=== PATIENT | male | born 1950 | race Caucasian/White ===

== ENCOUNTER 2017-01-31 11:01 | Inpatient (IN) | payer OTHER ==
[~2017-01-31] VITALS: Ht 170.2 cm; Wt 73.2 kg
[2017-01-31] MEDS ORDERED: AMLO-147 PO (14:33)
[2017-01-31] MEDS ORDERED: PANTOPRAZOLE 40 MG INJ IV STA (14:35)
[2017-01-31] MEDS ORDERED: ATEN100T PO (14:42)
[2017-01-31] MEDS ORDERED: ATOR10TA65 PO (14:42)
[2017-01-31] MEDS ORDERED: ERGO500037 PO (14:43)
[2017-01-31] MEDS ORDERED: LOSA50TA6 PO (14:43)
[2017-01-31] MEDS ORDERED: OMEP40CA6 PO (14:44)
[2017-01-31] MEDS ORDERED: METF1000 PO (14:44)
[2017-01-31 14:46] LABS: ADD SCAN DIFF NO
[2017-01-31 14:47] LABS: BASOPHILS % 0.2 % (0.0-2.0); EOSINOPHILS % 0.2 % (0.0-7.0); HEMATOCRIT 15.8 % (42.0-52.0); LYMPHOCYTES # 2.7 10^3/ul (0.8-2.9); LYMPHOCYTES % 30.1 % (15.0-51.0); MEAN CORPUSCULAR HEMOGLOBIN 32.7 pg (29.0-33.0); MEAN CORPUSCULAR HGB CONC 32.9 g/dl (32.0-37.0); MEAN CORPUSCULAR VOLUME 99.4 fl (82.0-101.0); MEAN PLATELET VOLUME 9.4 fl (7.4-10.4); MONOCYTE # 0.6 10^3/ul (0.3-0.9); MONOCYTES % 6.1 % (0.0-11.0); NEUTROPHIL # 5.6 10^3/ul (1.6-7.5); NEUTROPHILS % 62.4 % (39.0-77.0); PLATELET COUNT 255 10^3/UL (140-415); RED BLOOD COUNT 1.59 10^6/ul (4.70-6.10); RED CELL DISTRIBUTION WIDTH 18.3 % (11.5-14.5)
--- NOTE | 2017-01-31 14:50 | ERA ---
ER Documentation Chief Complaint Date/Time DATE: 01/31/17 TIME: 14:47 Chief Complaint SENT FOR POSSIBLE BLOOD TRANS HPI Patient is a 66-year-old man with history of diabetes, hypertension, hypercholesterolemia who presents with shortness of breath and lightheadedness for 3 days. Patient reports one episode of hematemesis 3 days ago, denies black stools. Patient saw his PMD today and was found to have a hemoglobin of 5.4, so he was sent to the ER for blood transfusion and further workup of GI bleed. Patient denies alcohol use, denies history of GI bleed, denies recent use of NSAIDs. No history of cirrhosis or liver disease. Not on blood thinners. ROS All systems reviewed and are negative except as per history of present illness. Medications Home Meds Reported Medications Omeprazole* (Omeprazole*) 40 Mg Capsule.dr, 40 MG PO DAILY, #30 CAP 01/31/17 Metformin Hcl* (Metformin Hcl*) 1,000 Mg Tablet, 1000 MG PO WITH BREAKFAST DINNE , #30 TAB 01/31/17 Losartan Potassium* (Losartan Potassium*) 50 Mg Tablet, 50 MG PO DAILY, TAB 01/31/17 Ergocalciferol (Vitamin D2) (VITAMIN D2) 50,000 Unit Capsule, 35698 UNIT PO every 7 days, CAP 01/31/17 Atorvastatin Calcium (Atorvastatin Calcium) 10 Mg Tablet, 10 MG PO QHS, #30 TAB 01/31/17 Atenolol* (Atenolol*) 100 Mg Tablet, 100 MG PO DAILY, #30 TAB 01/31/17 Amlodipine Besylate* (Amlodipine Besylate*) 10 Mg Tablet, 10 MG PO DAILY, #30 TAB 01/31/17 Allergies Allergies: Coded Allergies: No Known Allergy (Unverified , 01/31/17) PMhx/Soc Past medical history: Diabetes mellitus, hypertension, hyperlipidemia Past surgical history: Denies Social history: Denies tobacco or alcohol Medical and Surgical Hx: pt denies Surgical Hx History of Surgery: No Anesthesia Reaction: No Hx Neurological Disorder: No Hx Respiratory Disorders: No Hx Cardiac Disorders: Yes (hypertension; hypercholesterolemia) Hx Miscellaneous Medical Probl: No (dm) Hx Alcohol Use: No Hx Substance Use: No Hx Tobacco Use: No Smoking Status: Never smoker FmHx Family History: No coronary disease, No diabetes Physical Exam Vitals Vital Signs Date Time Temp Pulse Resp B/P Pulse Ox O2 Delivery O2 Flow Rate FiO2 01/31/17 16:20 79 18 133/70 98 Room Air 01/31/17 14:41 Nasal Cannula 2 01/31/17 11:05 98.0 101 18 134/71 99 Physical Exam Const: Alert, oriented, no acute distress Head: Atraumatic Eyes: Pale conjunctiva ENT: Normal External Ears, Nose and Mouth. Neck: Full range of motion. No meningismus. Resp: Clear to auscultation bilaterally Cardio: Regular rate and rhythm, no murmurs Abd: Soft, non tender, non distended. Normal bowel sounds Rectal: Slightly dark stool, no gross blood Skin: No petechiae or rashes Back: No midline or flank tenderness Ext: No cyanosis, or edema Neur: Awake and alert Psych: Normal Mood and Affect Result Diagram: 01/31/17 1440 01/31/17 1440 Results 24 hrs Laboratory Tests Test 01/31/17 14:40 Activated Partial Thromboplast Time 26.4Sec Alanine Aminotransferase (ALT/SGPT) 33IU/L Albumin 3.4g/dl Albumin/Globulin Ratio 1.36 Alkaline Phosphatase 57IU/L Anion Gap 15 Aspartate Amino Transf (AST/SGOT) 30IU/L Basophils # 0.010^3/ul Basophils % 0.2% Blood Urea Nitrogen 15mg/dl Calcium Level 8.7mg/dl Carbon Dioxide Level 27mmol/L Chloride Level 104mmol/L Creatinine 0.79mg/dl Differential Comment AUTO w/SCAN Direct Bilirubin 0.00mg/dl Eosinophils # 0.010^3/ul Eosinophils % 0.2% Globulin 2.50g/dl Glucose Level 131mg/dl Hematocrit 15.8% Hemoglobin 5.2g/dl INR International Normalized Ratio 1.02 Indirect Bilirubin 0.1mg/dl Lymphocytes # 2.710^3/ul Lymphocytes % 30.1% Mean Corpuscular Hemoglobin 32.7pg Mean Corpuscular Hemoglobin Concent 32.9g/dl Mean Corpuscular Volume 99.4fl Mean Platelet Volume 9.4fl Monocytes # 0.610^3/ul Monocytes % 6.1% Neutrophils # 5.610^3/ul Neutrophils % 62.4% Nucleated Red Blood Cells # 0.010^3/ul Nucleated Red Blood Cells % 0.0/100WBC Platelet Count 81623^3/UL Potassium Level 4.5mmol/L Prothrombin Time 13.4Sec Prothrombin Time Ratio 1.0 Red Blood Count 1.5910^6/ul Red Cell Distribution Width 18.3% Sodium Level 141mmol/L Stool Occult Blood POSITIVE Total Bilirubin 0.1mg/dl Total Protein 5.9g/dl Troponin I 0.028ng/ml White Blood Count 9.010^3/ul Current Medications Medications (Trade) Dose Ordered Sig/Marcos Route PRN Reason Start Time Stop Time Status Last Admin Dose Admin Pantoprazole (Protonix Iv) 40 mg ONCE STAT IV 01/31/17 14:35 01/31/17 14:38 DC 01/31/17 14:43 Ondansetron HCl (Zofran Inj) 4 mg ER BRIDGE PRN IV NAUSEA AND/OR VOMITING 01/31/17 16:00 02/01/17 15:59 Acetaminophen (Tylenol Tab) 650 mg ER BRIDGE PRN PO MILD PAIN/FEVER 01/31/17 16:00 02/01/17 15:59 Procedures/MDM EKG: Time 1443, rate 83, normal sinus rhythm, normal axis and intervals, no ischemic ST-T wave changes, no ectopy MDM: Patient with episode of hematemesis 3 days ago, now has dark stool on exam , guaiac positive. Patient has normal blood pressure and pulse, no signs of coronary ischemia. No history of cirrhosis or preop prior GI bleed. Normal coags and platelets. Given Protonix IV, and will transfuse 2 units packed red blood cells and admitted for further GI workup. Discussed with Dr. Matthews, who will admit patient. Departure Diagnosis: Primary Impression: Upper GI bleed Additional Impression: Anemia Condition: JULIETA Cochran Jan 31, 2017 14:50
[2017-01-31 14:58] LABS: INR 1.02; PROTIME 13.4 Sec (12.2-14.2)
[2017-01-31 14:59] LABS: PARTIAL THROMBOPLASTIN TIME 26.4 Sec (25.0-35.0)
[2017-01-31 15:00] LABS: ALBUMIN 3.4 g/dl (3.3-4.9); POTASSIUM 4.5 mmol/L (3.5-5.1)
[2017-01-31 15:02] LABS: BILIRUBIN,INDIRECT 0.1 mg/dl (0-1.1); BILIRUBIN,TOTAL 0.1 mg/dl (0.2-1.3); CREATININE 0.79 mg/dl (0.61-1.24)
[2017-01-31 15:03] LABS: ALBUMIN/GLOBULIN RATIO 1.36; CALCIUM 8.7 mg/dl (8.4-10.2); TOTAL PROTEIN 5.9 g/dl (6.1-8.1)
[2017-01-31 15:13] LABS: TROPONIN-I 0.028 ng/ml (0.00-0.12)
[2017-01-31 15:17] LABS: HEMOGLOBIN 5.2 g/dl (14.0-18.0)
[2017-01-31] MEDS ORDERED: ACETAMINOPHEN 325 MG TAB PO PRN ×2 (16:00→19:00)
[2017-01-31] MEDS ORDERED: ONDANSETRON 4 MG INJ IV PRN ×2 (16:00→19:00)
[2017-01-31] MEDS ORDERED: FUROSEMIDE 20 MG INJ IV ONE (19:00)
[2017-01-31 20:30] VITALS: TEMP 98.3
--- NOTE | 2017-01-31 21:04 | HP ---
DATE OF ADMISSION: 01/31/2017 REASON FOR ADMISSION: Dizziness and presyncopal symptoms. HISTORY OF PRESENT ILLNESS: This is a pleasant 66-year-old gentleman, history of hypertension, hype rlipidemia, type 2 diabetes who has been feeling lightheaded for the past 3 days and has been having black, tarry stools and 1 episode of dark brown coffee-ground emesis 3 days ago. Since that time, he has remained generally weak and fatigued. Denies any recent travel history. No history of alcoh ol abuse. He takes baby aspirin for cardioprotective reasons, otherwise no significant blood thinne rs. No history of liver disease. No prior history of gastric or duodenal disorders. MEDICATIONS AT HOME: Include 1. Atenolol. 2. Atorvastatin. 3. Losartan. 4. Metformin. 5. Amlodipine. ALLERGIES: HE HAS NO KNOWN ALLERGIES. SOCIAL HISTORY: He is a nonsmoker. No alcohol, no history of drug use. FAMILY HISTORY: Noncontributory. SYSTEMS REVIEW: A 12-point review of systems negative other than that mentioned above. PHYSICAL EXAMINATION: GENERAL: Elderly-appearing gentleman, appears comfortable at rest. No acute distress. VITAL SIGNS: Temperature 98, pulse 76, blood pressure 120/72, O2 saturation 96% on room air. NECK: Supple. No JVD or lymphadenopathy. CARDIAC: S1, S2. No added sounds or murmurs. CHEST: Diminished air entry bilaterally. ABDOMEN: Soft, nontender. No guarding or rebound. EXTREMITIES: No cyanosis, clubbing or edema. NEUROLOGIC: Grossly intact. No focal deficits. LABORATORY DATA: White count was 9.0, hemoglobin 5.2, platelets of 255. BUN 15, creatinine 0.79. INR 1.02. Stool occult blood was positive. IMPRESSION AND PLAN: Significant anemia with presyncopal symptoms likely secondary to profoundly lo w hemoglobin, probable gastrointestinal bleed given history of melena. Differential does include ar teriovenous malformations, gastric or peptic ulcer disease and/or malignancy. Differential also inc ludes diverticular disease. The patient will require: 1. Remain n.p.o. 2. IV fluids. 3. Transfusion of 4 units total packed red blood cells. 4. Continue proton pump inhibitor. 5. GI consult for likely colonoscopy and endoscopy. Dictated By: DARIUSZ HODGE/JOSH Conf#: [id number] [facility]#: [id number]
[2017-01-31 21:35] VITALS: BP 143/72; PULSE 74; RESP 20
[2017-01-31 21:49] VITALS: Ht 170.2 cm; Wt 73.2 kg
[2017-01-31] MEDS ORDERED: GLUCAGON 1 MG INJ IM PRN (23:00)
[2017-01-31] MEDS ORDERED: GLUCOSE GEL 15 GRAM TUBE BUCCAL PRN (23:00)
[2017-01-31] MEDS ORDERED: GLUCOSE GEL 15 GRAM TUBE PO PRN ×2 (23:00)
[2017-01-31] MEDS ORDERED: DEXTROSE 50% 50 ML SYRINGE IV PRN ×2 (23:00)
[2017-02-01] VITALS (16 sets, daily range): BP systolic 98–158; BP diastolic 64–73; PULSE 55–85; RESP 13–20
[2017-02-01] MEDS: ACCUCHECK XX SCH (02:00)
[2017-02-01 03:44] LABS: ADD SCAN DIFF NO
[2017-02-01 03:59] LABS: BASOPHIL # 0.1 10^3/ul (0.0-0.1); BASOPHILS % 0.5 % (0.0-2.0); EOSINOPHILS # 0.1 10^3/ul (0.0-0.5); EOSINOPHILS % 1.1 % (0.0-7.0); HEMATOCRIT 23.8 % (42.0-52.0); LYMPHOCYTES # 2.8 10^3/ul (0.8-2.9); LYMPHOCYTES % 29.4 % (15.0-51.0); MEAN CORPUSCULAR HEMOGLOBIN 31.1 pg (29.0-33.0); MEAN CORPUSCULAR HGB CONC 33.6 g/dl (32.0-37.0); MEAN CORPUSCULAR VOLUME 92.6 fl (82.0-101.0); MEAN PLATELET VOLUME 9.5 fl (7.4-10.4); MONOCYTE # 0.7 10^3/ul (0.3-0.9); MONOCYTES % 7.1 % (0.0-11.0); NEUTROPHIL # 5.8 10^3/ul (1.6-7.5); NEUTROPHILS % 61.3 % (39.0-77.0); PLATELET COUNT 233 10^3/UL (140-415); RED BLOOD COUNT 2.57 10^6/ul (4.70-6.10); RED CELL DISTRIBUTION WIDTH 18.1 % (11.5-14.5); WHITE BLOOD COUNT 9.5 10^3/ul (4.8-10.8)
[2017-02-01 04:00] LABS: POTASSIUM 3.9 mmol/L (3.5-5.1)
[2017-02-01 04:03] LABS: CREATININE 0.88 mg/dl (0.61-1.24)
[2017-02-01 04:04] LABS: CALCIUM 8.4 mg/dl (8.4-10.2); PHOSPHORUS 3.9 mg/dl (2.5-4.9)
[2017-02-01] MEDS ORDERED: PANTOPRAZOLE (EC) 40 MG TAB PO SCH (06:00)
[2017-02-01] MEDS ORDERED: PANTOPRAZOLE 40 MG INJ IV SCH (06:00)
[2017-02-01] MEDS: INSULIN ASPART [NOVOLOG] 3 ML PEN SC SCH ×3 (08:00→21:00)
[2017-02-01] MEDS: SOD CHLORIDE 0.9% 1,000 ML IV SCH ×3 (08:20→21:40)
[2017-02-01] MEDS ORDERED: ERGOCALCIFEROL 50,000 UNIT CAP PO SCH (09:00)
[2017-02-01] MEDS: ATENOLOL 100 MG TAB PO SCH (09:14)
[2017-02-01] MEDS: LOSARTAN 50 MG TAB PO SCH (09:14)
[2017-02-01] MEDS: metFORMIN 500 MG TAB PO SCH ×2 (09:14→21:00)
[2017-02-01] MEDS: AMLODIPINE 10 MG TAB PO SCH (09:15)
[2017-02-01 11:33] LABS: HEMATOCRIT 27.5 % (42.0-52.0); HEMOGLOBIN 9.3 g/dl (14.0-18.0)
--- NOTE | 2017-02-01 13:47 | PN ---
DATE: 02/01/2017 TIME OF EVALUATION: 12:30 p.m. SUBJECTIVE DATA: Denies any hematemesis. Denies any other complaints. OBJECTIVE DATA: VITAL SIGNS: Temperature 98.3, pulse rate 54, respiratory rate 20, blood pressure 111/70, oxygen saturation 98% on room air. GENERAL: This is a well-built, well-nourished male patient, sitting in bed, in no apparent distress. HEENT: Head normocephalic and atraumatic. Eyes: Anicteric sclerae. Conjunctivae clear. ENT: Nasal septum is midline. Oral mucosa is dry. NECK: Supple. No JVD. RESPIRATORY: Bilaterally clear to auscultation. No adventitious breath sounds heard. No use of accessory muscles of respiration. CARDIAC: Regular rate and rhythm. No murmurs heard. ABDOMEN: Soft, nontender, and nondistended. Bowel sounds positive in all 4 quadrants. GENITOURINARY: Deferred. EXTREMITIES: No cyanosis, no clubbing, no edema. Peripheral pulses palpable. NEUROLOGIC: The patient is awake, alert, and oriented. Cranial nerves are grossly intact. LABORATORY AND DIAGNOSTIC DATA: WBC 9.5, hemoglobin 8.0, hematocrit 23.8, platelet count 233. Sodium 141, potassium 3.9, chloride 100, carbon dioxide 28 , anion gap 13, BUN 12, creatinine 0.88, glucose 120, calcium 8.4, phosphorus 3.9, magnesium 2.0. ASSESSMENT AND PLAN: 1. Normocytic normochromic anemia secondary to acute blood loss. Status post PRBC transfusion. The patient being followed by gastroenterology. Continue Protonix. The patient is scheduled for esophagogastroduodenoscopy. 2. Essential hypertension. Continue antihypertensives. Blood pressure well controlled. 3. Type 2 diabetes mellitus. Continue sliding scale insulin along with metformin. Blood sugars well controlled. 4. Dyslipidemia. Continue statin. Fasting lipid panel will be obtained. 5. Fluid, electrolytes, and nutrition. Currently n.p.o. for EGD. 6. Deep venous thrombosis prophylaxis with bilateral sequential compression devices. 7. Gastrointestinal prophylaxis. Proton pump inhibitors. PLAN: Await esophagogastroduodenoscopy. Monitor hemoglobin and hematocrit closely. Case discussed with Dr. Solo. LO SOLO MD, AM/JOSH Conf#: [id number] [facility]#: [id number] MTDD
--- NOTE | 2017-02-01 17:54 | CONS ---
Date/Time of Note Date/Time of Note DATE: 02/01/17 TIME: 17:54 Consultation Date/Type/Reason Admit Date/Time Jan 31, 2017 at 21:25 Date of Consultation: Feb 01, 2017 Social History Smoking Status: Never smoker Exam/Review of Systems Vital Signs Vitals Vital Signs Date Time Temp Pulse Resp B/P Pulse Ox O2 Delivery O2 Flow Rate FiO2 02/01/17 16:33 56 02/01/17 16:28 97.7 20 98/64 98 02/01/17 04:21 Room Air 01/31/17 14:41 2 Intake and Output 01/31/17 01/31/17 02/01/17 15:00 23:00 07:00 Intake Total 650 ml 750 ml Output Total 325 ml 900 ml Balance 325 ml -150 ml Results Result Diagram: 02/01/17 1105 02/01/17 0325 Results 24 hrs Laboratory Tests Test 01/31/17 23:21 02/01/17 03:25 02/01/17 08:09 02/01/17 11:05 Bedside Glucose 132 132 Anion Gap 13 Basophils # 0.1 Basophils % 0.5 Blood Urea Nitrogen 12 Calcium Level 8.4 Carbon Dioxide Level 28 Chloride Level 104 Creatinine 0.88 Eosinophils # 0.1 Eosinophils % 1.1 Glucose Level 120 Hematocrit 23.8 #L 27.5 L Hemoglobin 8.0 #L 9.3 L Lymphocytes # 2.8 Lymphocytes % 29.4 Magnesium Level 2.0 Mean Corpuscular Hemoglobin 31.1 Mean Corpuscular Hemoglobin Concent 33.6 Mean Corpuscular Volume 92.6 Mean Platelet Volume 9.5 Monocytes # 0.7 Monocytes % 7.1 Neutrophils # 5.8 Neutrophils % 61.3 Nucleated Red Blood Cells # 0.0 Nucleated Red Blood Cells % 0.0 Phosphorus Level 3.9 Platelet Count 233 Potassium Level 3.9 Red Blood Count 2.57 #L Red Cell Distribution Width 18.1 H Sodium Level 141 White Blood Count 9.5 Test 02/01/17 11:13 02/01/17 17:40 Bedside Glucose 123 128 Medications Medications Current Medications Sodium Chloride (NS) 1,000 ml @ 75 mls/hr [id number] IV ; Start 01/31/17 at 19:00 Acetaminophen (Tylenol Tab) 325 mg Q6H PRN PO PAIN LEVEL 1-5; Start 01/31/17 at 19:00 Ondansetron HCl (Zofran Inj) 4 mg Q6H PRN IV NAUSEA AND/OR VOMITING; Start 01/31 at 19:00 Amlodipine Besylate (Norvasc) 10 mg DAILY PO Last administered on 02/01/17 09: 15; Admin Dose 10 MG; Start 02/01/17 at 09:00 Atenolol (Tenormin) 100 mg DAILY PO Last administered on 02/01/17 09:14; Admin Dose 100 MG; Start 02/01/17 at 09:00 Atorvastatin Calcium (Lipitor) 10 mg QHS PO ; Start 02/01/17 at 21:00 Ergocalciferol (Drisdol) 50,000 unit We@09 PO Last administered on 02/01/17 09: 14; Admin Dose 50,000 UNIT; Start 02/01/17 at 09:00 Losartan Potassium (Cozaar) 50 mg DAILY PO Last administered on 02/01/17 09:14 ; Admin Dose 50 MG; Start 02/01/17 at 09:00 Diagnostic Test (Pha) (Accucheck) 1 ea 02 XX ; Start 02/01/17 at 02:00 Miscellaneous Information 1 ea NOTE XX ; Start 01/31/17 at 23:00 Glucose (Glutose) 15 gm Q15M PRN PO DECREASED GLUCOSE; Start 01/31/17 at 23:00 Glucose (Glutose) 22.5 gm Q15M PRN PO DECREASED GLUCOSE; Start 01/31/17 at 23:00 Dextrose (D50w Syringe) 25 ml Q15M PRN IV DECREASED GLUCOSE; Start 01/31/17 at 23:00 Dextrose (D50w Syringe) 50 ml Q15M PRN IV DECREASED GLUCOSE; Start 01/31/17 at 23:00 Glucagon (Glucagen) 1 mg Q15M PRN IM DECREASED GLUCOSE; Start 01/31/17 at 23:00 Glucose (Glutose) 15 gm Q15M PRN BUCCAL DECREASED GLUCOSE; Start 01/31/17 at 23: 00 Pantoprazole (Protonix Tab) 40 mg BID@,18 PO ; Start 02/01/17 at 18:00 GISELA VÁZQUEZ MD Feb 01, 2017 17:54
[2017-02-01] MEDS ORDERED: PROPOFOL 20 ML ONE (18:25)
[2017-02-01 20:26] LABS: HEMATOCRIT 33.1 % (42.0-52.0); HEMOGLOBIN 11.3 g/dl (14.0-18.0)
--- NOTE | 2017-02-01 20:43 | GILP ---
DATE OF PROCEDURE: 02/01/2017 NAME OF PROCEDURE: Esophagogastroduodenoscopy with biopsies. SURGEON: Gisela Araujo MD HISTORY AND INDICATIONS: The patient is being evaluated for gastrointestinal bleeding. PREMEDICATION: Monitored anesthesia care by anesthesiologist. INSTRUMENT USED: Olympus panendoscope. TECHNIQUE: After informed consent, with the patient/relatives understanding the procedure, its amy cations, potential risks and complications, including but not limited to: allergic reaction, bleedin g, perforation or infection, and after all pertinent questions were answered to the patient's satisf action, the patient/relatives signed witnessed informed consent. Following this, premedication was administered slowly IV push under careful cardiovascular and respi ratory monitoring with pulse oximetry, automatic blood pressure and lead rider. Once the sedative effect was achieved the patient was place in the left lateral decubitus, the panen doscope was introduced and advanced under visual control. Careful examination of the upper gastrointestinal tract both on insertion as well as withdrawal of t he instrument disclosed the following findings: ESOPHAGUS: The distal esophagus shows mild erythema of the mucosa at the EG junction. STOMACH: Upon entrance to the stomach, air was insufflated. The gastric wetzel distended normally. There is mild erythema and edema of the mucosa throughout. Biopsies were obtained to rule out H. p ylori infection. PYLORUS: Patent, within normal limits. DUODENUM: The duodenal bulb shows the presence of 3 clean-based duodenal ulcerations with no stigma ta of recent bleeding. Second portion of the duodenum appears unremarkable. The instrument was then withdrawn. The patient tolerated the procedure well and was transferred out of the endoscopy suite awake and in good condition to continue recovery under observation. IMPRESSION: 1. Mild distal esophagitis. 2. Mild gastritis, rule out Helicobacter pylori infection. Biopsies obtained. 3. Three clean-based duodenal ulcers with no stigmata. PLAN: The patient will be treated with Protonix 40 mg b.i.d. Pathology will be reviewed as soon as available. Further recommendations will depend on the patient's clinical course as well as review of biopsies. Dictated By: GISELA ARAUJO MS/JOSH Conf#: [id number] DID#: [id number]
[2017-02-01] MEDS ORDERED: ATORVASTATIN 10 MG TAB PO SCH (21:00)
[2017-02-01] MEDS: PANTOPRAZOLE (EC) 40 MG TAB PO SCH (21:04)
[2017-02-02] VITALS (8 sets, daily range): BP systolic 99–112; BP diastolic 66–72; PULSE 51–63; RESP 19–20
[2017-02-02 00:43] LABS: HEMATOCRIT 30.4 % (42.0-52.0); HEMOGLOBIN 10.4 g/dl (14.0-18.0)
[2017-02-02] MEDS: ACCUCHECK XX SCH (02:00)
[2017-02-02] MEDS: PANTOPRAZOLE (EC) 40 MG TAB PO SCH (05:30)
[2017-02-02 07:40] LABS: ADD SCAN DIFF NO
[2017-02-02 07:50] LABS: BASOPHILS % 0.5 % (0.0-2.0); EOSINOPHILS # 0.1 10^3/ul (0.0-0.5); EOSINOPHILS % 1.5 % (0.0-7.0); HEMATOCRIT 35.6 % (42.0-52.0); HEMOGLOBIN 11.8 g/dl (14.0-18.0); LYMPHOCYTES # 2.7 10^3/ul (0.8-2.9); LYMPHOCYTES % 32.2 % (15.0-51.0); MEAN CORPUSCULAR HEMOGLOBIN 30.8 pg (29.0-33.0); MEAN CORPUSCULAR HGB CONC 33.1 g/dl (32.0-37.0); MEAN PLATELET VOLUME 9.6 fl (7.4-10.4); MONOCYTE # 0.6 10^3/ul (0.3-0.9); MONOCYTES % 7.5 % (0.0-11.0); NEUTROPHIL # 4.9 10^3/ul (1.6-7.5); NEUTROPHILS % 57.7 % (39.0-77.0); PLATELET COUNT 263 10^3/UL (140-415); RED BLOOD COUNT 3.83 10^6/ul (4.70-6.10); RED CELL DISTRIBUTION WIDTH 17.6 % (11.5-14.5); WHITE BLOOD COUNT 8.5 10^3/ul (4.8-10.8)
[2017-02-02 08:00] LABS: ALBUMIN 3.8 g/dl (3.3-4.9)
[2017-02-02] MEDS: INSULIN ASPART [NOVOLOG] 3 ML PEN SC SCH ×2 (08:00→12:46)
[2017-02-02 08:01] LABS: POTASSIUM 4.4 mmol/L (3.5-5.1)
[2017-02-02] MEDS: metFORMIN 500 MG TAB PO SCH (08:02)
[2017-02-02 08:03] LABS: ALBUMIN/GLOBULIN RATIO 1.26; BILIRUBIN,INDIRECT 0.3 mg/dl (0-1.1); BILIRUBIN,TOTAL 0.3 mg/dl (0.2-1.3); TOTAL PROTEIN 6.8 g/dl (6.1-8.1)
[2017-02-02] MEDS: AMLODIPINE 10 MG TAB PO SCH (08:03)
[2017-02-02] MEDS: LOSARTAN 50 MG TAB PO SCH (08:03)
[2017-02-02 08:04] LABS: CALCIUM 8.9 mg/dl (8.4-10.2); IRON 49 ug/dl (35-150)
[2017-02-02 08:05] LABS: CHOL/HDL RATIO 2.8 RATIO; MAGNESIUM 2.3 mg/dl (1.7-2.5); PHOSPHORUS 5.2 mg/dl (2.5-4.9)
[2017-02-02] MEDS: ATENOLOL 100 MG TAB PO SCH (08:05)
[2017-02-02 08:13] LABS: TOTAL IRON BINDING CAPACITY 343 ug/dl (241-421)
[2017-02-02] MEDS: SOD CHLORIDE 0.9% 1,000 ML IV SCH (11:00)
[2017-02-02 14:49] LABS: ABNORMAL IP MESSAGE 1
[2017-02-02] MEDS ORDERED: PANT40TA4 PO (14:54)
--- NOTE | 2017-02-02 14:54 | PDOCDIS ---
Discharge Instructions DIAGNOSIS Discharge Diagnosis: Gastrointestinal bleeding. CONDITION Patient Condition: Stable HOME CARE INSTRUCTIONS: Special Diet: 1800 ada FOLLOW UP/APPOINTMENTS Appointments Raffy Augustine MD Specialty: Internal Medicine Office Address: [address] [place], [place] [id number] Office OTHER ORDERS: Other Orders: 1. Resume home medications. Start taking Protonix daily. 2. Carbohydrate controlled diet. 3. Resume activities as tolerated. 4. Follow-up with your primary care physician in 2 weeks. If you do not have a primary care physician, please call Dr. Raffy Augustine's office. LO ESPINOZA NP Feb 02, 2017 14:53
[2017-02-02 15:20] LABS: HEMATOCRIT 32.5 % (42.0-52.0); HEMOGLOBIN 10.9 g/dl (14.0-18.0)
--- NOTE | 2017-02-02 18:23 | DS ---
DATE OF ADMISSION: 01/31/2017 DATE OF DISCHARGE: 02/02/2017 FINAL DIAGNOSES: 1. Normocytic normochromic anemia secondary to acute blood loss. 2. Mild distal gastritis. 3. Duodenal ulcers. 4. Essential hypertension. 5. Type 2 diabetes mellitus. 5. Dyslipidemia. VAMP CREASER: Dr. Charles Araujo, gastroenterology. HOSPITAL COURSE: This is a 66-year-old gentleman with past medical history of essential hypertension, type 2 diabetes mellitus, and hyperlipidemia, who came to the emergency room with a chief complaint of dizziness and presyncopal symptoms. The patient verbalized that he has been having black tarry stools and 1 episode of dark brown, coffee-ground emesis a couple of days ago. The patient takes aspirin for cardioprotective reasons, but otherwise no significant blood thinners. The patient denied any prior history of gastric or duodenal ulcers. In the emergency room, the patient was noticed to have significant anemia with a hemoglobin and hematocrit of 5.1 and 15.8, respectively. The patient's platelet count was within normal limits. Provided the patient's history of present illness and the diagnostic findings, a clinical decision was made to admit the patient to inpatient setting to have him further evaluated. The patient was admitted to inpatient telemetry floor. A gastroenterology consult was called. Blood transfusion was ordered. The patient was started on proton pump inhibitors. The patient received a total of 4 units of PRBCs with improvement in the patient's H and H. The patient underwent an esophagogastroduodenoscopy on 02/01/2017 that revealed distal esophagitis, mild gastritis, and 3 clean-based duodenal ulcers with no stigmata. Data Scientist recommended continuing proton pump inhibitor therapy. The patient's H and H remained stable after blood transfusion and treatment with proton pump inhibitor therapy. The patient's symptoms of dizziness has subsided after the patient's H and H improved. The patient has underlying essential hypertension. He was maintained on antihypertensives for the same. The patient has type 2 diabetes mellitus. He was maintained on insulin along with metformin. Hemoglobin A1c was not ordered before blood transfusion. The patient's hemoglobin A1c was 5.6 after blood transfusion, which could be from the donor blood. The patient has underlying dyslipidemia. The patient was maintained on statins. The patient's fasting lipid panel was not satisfactory. The patient had his iron panel checked, and the iron iron panel did not show any significant iron deficiency. The patient' s anemia could have been most probably secondary to acute blood loss from gastrointestinal bleeding secondary to duodenal ulcers. The patient had a stable hospital course. The patient was cleared by consultants to be discharged home. The patient denied any complaints at the time of discharge. DISCHARGE DISPOSITION/PLAN: Patient will be discharged home today. The patient was instructed to take home medications. He was also to start taking Protonix daily. He was instructed to take a carbohydrate-controlled controlled diet. He was to resume activities as tolerated. He was instructed to follow up with his primary care physician in 2 weeks, and if he does not have a primary care physician, to please call Dr. Raffy Augustine's office. The patient was instructed to go to the nearest emergency room if he continues to have significant gastrointestinal bleeding. The patient verbalized understanding of his discharge instructions. CONDITION AT DISCHARGE: Stable. DISCHARGE MEDICATIONS: 1. Protonix 40 mg p.o. b.i.d. 2. Amlodipine 10 mg p.o. daily. 3. Atenolol 100 mg p.o. daily. 4. Atorvastatin 10 mg p.o. at bedtime. 5. Vitamin D2 at 50,000 units p.o. every 7 days. 6. Losartan 50 mg p.o. daily. 7. Metformin 1000 mg p.o. with breakfast and dinner. PERTINENT LABORATORIES, DIAGNOSTIC DATA, AND PROCEDURES: 1. Esophagogastroduodenoscopy on 02/01/2017. Mild distal esophagitis, mild gastritis. Clean-based duodenal ulcers with no stigmata. 2. Latest CBC: WBC 8.3, hemoglobin 11.8, hematocrit 35.6, platelet count 263. 3. Latest BMP: Sodium 143, potassium 4.4, chloride 102, carbon dioxide 20, anion gap 16, creatinine 1.06, glucose 111, calcium 8.9, phosphorus 5.2, magnesium 2.3. 4. Hemoglobin A1c 5.6 (possibly donor blood). 5. Fasting lipid panel: Triglycerides 126, total cholesterol 108, LDL 35, HDL 38. 6. Iron panel: Iron 49, TIBC 343, and saturation 14, ferritin 147. 7. Stool for OB x1 positive. 8. Coag panel: PT 13.4, INR 1.02, APTT 26.4. At this time, we would like to thank Dr. Araujo for seeing the patient, doing the necessary procedures, and providing clinical recommendations. The case and management of this patient was fully discussed with Dr. Solo. Approximately 35 minutes was spent on coordinating the discharge on this patient. LO SOLO MD, AM/JOSH Conf#: [id number] DID#: [id number] MTDD
== END 2017-02-02 17:00 | disposition home or self-care (01) | DRG 378 ==
LOC: E/R 11:01 → MS4 21:18
PROVIDERS: ADMIT Family Medicine; ATTEND Family Medicine
PROC: 30233N1 Transfusion of Nonautologous Red Blood Cells into Peripheral Vein, Percutaneous Approach (ICD-10-PCS; 2017-01-31)
PROC: 30233N1 Transfusion of Nonautologous Red Blood Cells into Peripheral Vein, Percutaneous Approach (ICD-10-PCS; 2017-02-01)
PROC: 0DB68ZX Excision of Stomach, Via Natural or Artificial Opening Endoscopic, Diagnostic (ICD-10-PCS; principal; 2017-02-01 20:30)
DX: K26.4 Chronic or unspecified duodenal ulcer with hemorrhage (principal); D62 Acute posthemorrhagic anemia; I10 Essential (primary) hypertension; K29.70 Gastritis, unspecified, without bleeding; K26.9 Duodenal ulcer, unspecified as acute or chronic, without hemorrhage or perforation; E78.5 Hyperlipidemia, unspecified; E11.9 Type 2 diabetes mellitus without complications; Z79.4 Long term (current) use of insulin
CPT/HCPCS: 36430; 80048; 80053; 80061; 82270; 82728; 82962; 83036; 83540; 83735; 84100; 84439; 84443; 84484; 85014; 85018; 85025; 85610; 85730; 86644; 86850; 86900; 86901; 86920; 88305; 88312; 93005; J1940; C9113; J1815; J7030; P9016